=== PATIENT | female | born 1980 | race Caucasian/White ===

== ENCOUNTER 2018-02-28 09:01 | Day surgery (SDC) | payer MEDICAID ==
[~2018-02-28 09:01] MED LIST: Dexamethasone 4 MG/ML SDV ONE; Ketamine 500 mg/10 ML MDV ONE; Lactated Ringers 1,000 ML IV SCH; Lactated Ringers 1,000 ML ONE; Lidocaine 1% 4 ML ONE; Lidocaine 1%/Sod Bicarbonate in NS 8.4% 1 ML Syringe IDERM PRN; Midazolam 1 MG/ML 2 ML SDV ONE; Ondansetron 4 MG/2 ML SDV ONE; Propofol 200 MG/20 ML SDV ONE; Sodium Chloride 0.9% 10 ML Syringe FLUSH PRN; fentaNYL 100 MCG/2 ML SDV ONE
[2018-02-28] MEDS ORDERED: Bupivacaine 0.5%/EPINEPHrine 1:200,000 50 ML MDV ONE (09:41)
[2018-02-28] MEDS ORDERED: Lidocaine 1% with EPINEPHrine 1:100,000 20 ML MDV ONE ×2 (09:41→10:39)
[2018-02-28] MEDS ORDERED: Albuterol 0.083% 2.5 MG/3 ML Neb Soln NEB ONE (10:14)
[2018-02-28] MEDS ORDERED: Albuterol 0.083% 2.5 MG/3 ML Neb Soln ONE (10:18)
--- NOTE | 2018-02-28 10:22 | PCM.PREANE ---
Preanesthetic Assessment - Anesthesia/Transfusion/Family Hx Anesthesia History: Prior Anesthesia Without Reaction Other Type of Anesthesia Reaction Comment: Sometimes feels emotional after surgery. Family History of Anesthesia Reaction: No - Review of Systems General: No Symptoms Pulmonary: Cough (Occasional, some nasal allergies right now that she feels may be triggering a cough at times. ), Other (Smoker 1/2 ppd for 19 years. Trying to quite. ) Cardiovascular: No Symptoms Gastrointestinal: No Symptoms Neurological: Headache (Migraines) Other: Reports: Liver Problems (Fatty Liver), Anxiety - Physical Assessment NPO Status Date: 02/27/18 NPO Status Time: 23:00 Pulse: 62 O2 Sat by Pulse Oximetry: 97 Respiratory Rate: 19 Blood Pressure: 118/73 Temperature: 36.8 C Weight: 101 kg ASA Class: 2 Mental Status: Alert & Oriented x3 Airway Class: Mallampati = 1 Dentition: Reports: Dentures (Upper) Thyro-Mental Finger Breadths: 3 Mouth Opening Finger Breadths: 3 ROM/Head Extension: Full Lungs: Clear to Auscultation, Normal Respiratory Effort, Decreased Breath Sounds Cardiovascular: Regular Rate, Regular Rhythm - Lab Values: Laboratory Last Values Urine HCG, Qual Negative (NEGATIVE) 02/28/18 09:26 - Allergies Allergies/Adverse Reactions: Allergies Allergy/AdvReac Type Severity Reaction Status Date / Time adhesive Allergy Rash Verified 02/27/18 17:27 influenza virus vaccine, Allergy Rash Verified 02/27/18 17:27 specific [influenza virus vacc,specific] pineapple [Pineapple] Allergy Rash Verified 02/27/18 17:27 - Acknowledgements Anesthesia Type Planned: MAC Pt an Appropriate Candidate for the Planned Anesthesia: Yes Alternatives and Risks of Anesthesia Discussed w Pt/Guardian: Yes Pt/Guardian Understands and Agrees with Anesthesia Plan: Yes PreAnesthesia Questionnaire - Past Health History Medical/Surgical History: Denies Medical/Surgical History HEENT History: Reports: Impaired Vision Other HEENT History: glasses, upper denture Other Cardiovascular History: hypertension during Other Respiratory History: seasonal allergies, undiagnosed sleep apnea Other Gastrointestinal History: fatty liver with liver biopsy 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 Other Musculoskeletal History: c/o "kink in neck x 3 days" left Neurological History: Reports: Migraines Endocrine/Metabolic History: Reports: Diabetes, Gestational Hematologic History: Reports: None Immunologic History: Reports: None Oncologic (Cancer) History: Reports: None Other Dermatologic History: boil like rash to chest - Infectious Disease History Infectious Disease History: Reports: MRSA - Past Surgical History Head Surgeries/Procedures: Reports: None HEENT Surgical History: Reports: Oral Surgery Cardiovascular Surgical History: Reports: None Respiratory Surgical History: Reports: None GI Surgical History: Reports: Hernia Repair/Other Other GI Surgeries/Procedures: hernia repair during csection 2015 Female Surgical History: Reports: Section Endocrine Surgical History: Reports: None Neurological Surgical History: Reports: None Oncologic Surgical History: Reports: None - SUBSTANCE USE Smoking Status *Q: Current Every Day Smoker Recreational Drug Use History: No - HOME MEDS Home Medications: Home Meds Albuterol Sulfate [Proair Hfa] 2 puff INH Q4H PRN 02/27/18 [History] Benzonatate [Tessalon Perle] 100 mg PO QID PRN 02/27/18 [History] Doxycycline [Vibramycin] 100 mg PO BID 02/27/18 [History] Ibuprofen 800 mg PO TID PRN 02/27/18 [History] Mupirocin Oint [Bactroban Oint] 1 dose NASBOTH BID 02/27/18 [History] SUMAtriptan Succinate [Imitrex] 50 mg PO ASDIRECTED PRN 02/27/18 [History] Sertraline [Zoloft] 50 mg PO DAILY 02/27/18 [History] traZODone HCl [Trazodone HCl] 50 mg PO BEDTIME PRN 02/27/18 [History] - CURRENT (IN HOUSE) MEDS Current Meds: Current Medications Lactated Ringer's (Ringers, Lactated) 1,000 mls @ 125 mls/hr IV ASDIRECTED CHRISS Stop: 02/28/18 23:00 Lidocaine/Sodium Bicarbonate (Buffered Lidocaine 1% In Ns 8.4%) 0.25 ml IDERM ONETIME PRN PRN Reason: Prior to IV Start Stop: 02/28/18 18:00 Sodium Chloride (Saline Flush) 10 ml FLUSH ASDIRECTED PRN PRN Reason: Keep Vein Open Stop: 02/28/18 18:00 Discontinued Medications Bupivacaine HCl/Epinephrine Bitart (Marcaine 0.5%/Epinephrine 1:200,000) Confirm Administered Dose 50 ml .ROUTE .[facility]-MED ONE Stop: 02/28/18 09:42 Dexamethasone (Dexamethasone) Confirm Administered Dose 4 mg .ROUTE .[facility]-MED ONE Stop: 02/28/18 07:14 Fentanyl (Sublimaze) Confirm Administered Dose 100 mcg .ROUTE .[facility] ONE Stop: 02/28/18 07:13 Lactated Ringer's (Ringers, Lactated) Confirm Administered Dose 1,000 mls @ as directed .ROUTE .[facility]-MED ONE Stop: 02/28/18 07:12 Lidocaine HCl (Xylocaine-Mpf 1%) Confirm Administered Dose 4 mls @ as directed .ROUTE .[facility]-MED ONE Stop: 02/28/18 07:14 Ketamine HCl (Ketalar) Confirm Administered Dose 500 mg .ROUTE .[facility]-MED ONE Stop: 02/28/18 07:13 Lidocaine/Epinephrine (Xylocaine 1% With Epinephrine 1:100,000) Confirm Administered Dose 20 ml .ROUTE .[facility]-MED ONE Stop: 02/28/18 09:42 Midazolam HCl (Versed 1 Mg/Ml) Confirm Administered Dose 2 mg .ROUTE .[facility]-MED ONE Stop: 02/28/18 07:13 Ondansetron HCl (Zofran) Confirm Administered Dose 4 mg .ROUTE .[facility]-MED ONE Stop: 02/28/18 07:14 Propofol (Diprivan 20 Ml) Confirm Administered Dose 600 mg .ROUTE .[facility]-MED ONE Stop: 02/28/18 07:12
[2018-02-28] MEDS ORDERED: ceFAZolin 1 GM Vial ONE (10:39)
[2018-02-28] MEDS ORDERED: Vancomycin 1 GM, Vancomycin 500 MG in Sodium Chloride 0.9% 500 ML IV ONE (10:45)
[2018-02-28] MEDS ORDERED: fentaNYL 100 MCG/2 ML SDV ONE (11:25)
[2018-02-28] MEDS ORDERED: Ketorolac 30 MG/ML SDV ONE (11:37)
--- NOTE | 2018-02-28 11:44 | PCM.OPNOTE ---
- General Post-Op/Procedure Note Date of Surgery/Procedure: 02/28/18 Operative Procedure(s): incision and drainage of a right breast abscess with debridement of the abscess cavity Findings: Right breast abscess Pre Op Diagnosis: Right breast abscess Post-Op Diagnosis: Same Anesthesia Technique: MAC Primary Surgeon: Wendy Rosa Anesthesia Provider: Michelle Callahan Pathology: Right breast abscess cavity Fluid Replacement, Intraop: 1,000 Output, Urine Amount: 0 EBL in mLs: 5 Complications: None apparent Condition: Good
--- NOTE | 2018-02-28 11:50 | PCM.PRNOTE ---
- Free Text/Narrative Note: Operative Report Date of surgery: February 28, 2017 Preoperative diagnosis: Right breast abscess Postoperative diagnosis: same Procedure: Incision and drainage of right breast abscess with debridement of abscess cavity Surgeon: Dr. Wendy Rosa Anesthesia: MAC Stage Settings Painter: Michelle Callahan CRNA Estimated blood loss: 5 mL IV fluids: 1000 mL Urine output: 0 mL Drains and lines: None Findings: Right breast abscess Pathology: Right breast abscess cavity Indication for the procedure: . The patient is a 37-year-old lady presented to my clinic with a right breast abscess. We attempted needle aspiration and incision and drainage, however, the abscess recurred. We attempted aspiration one additional time but this did not resolve the abscess. The patient was consented for an incision and debridement of this cavity. After discussion of risks and benefits, her written consent was obtained Description of the procedure: The patient was taken back to the operating room and placed in supine position on the operating table. MAC anesthesia was induced without difficulty. A surgical timeout was performed. The patient was prepped and draped in standard surgical fashion. We began by injecting 1% lidocaine with epinephrine in the periareolar area on the right breast. He incision was made on the area where border on the right breast. A 15 blade scalpel is then used to incise this tissue, which was deepened using the Bovie device. Dissection was carried down until the abscess cavity was area. The abscess appeared to be directly posterior to the nipple. In entering the abscess cavity proximally 10 mL of murky fluid was evacuated. The abscess cavity appeared chronic, with a thickened wall and internal granulation tissue. The abscess cavity tissue was then excised and sent to pathology. The Bovie device was then used to free up the fibrous bands that were causing retraction of the nipple in order to restore normal appearing architecture of the breast. The cavity was then irrigated and packed with a wet-to-dry saline dressing. A dry dressing was then applied. Patient was awakened from MAC anesthesia successfully. She was transported to the PACU in stable condition. Wendy Rosa MD General Surgery
[2018-02-28 11:59] VITALS: BP 130/70
--- NOTE | 2018-02-28 11:59 | PCM48HPAN ---
Post Anesthesia Note - EVALUATION WITHIN 48HRS OF ANESTHETIC Vital Signs in Normal Range: Yes Patient Participated in Evaluation: Yes Respiratory Function Stable: Yes Airway Patent: Yes Cardiovascular Function Stable: Yes Hydration Status Stable: Yes Pain Control Satisfactory: Yes Nausea and Vomiting Control Satisfactory: Yes Mental Status Recovered: Yes Pulse Rate: 91 SaO2: 96 Resp Rate: 18 Temperature: 36.9 C Blood Pressure: 130/70
== END 2018-02-28 12:50 | disposition home or self-care (01) ==
LOC: JD.SDS 09:01
PROVIDERS: ATTEND Surgery
DX: N61.1 Abscess of the breast and nipple (principal); N60.31 Fibrosclerosis of right breast; F17.210 Nicotine dependence, cigarettes, uncomplicated; E66.9 Obesity, unspecified; Z68.30 Body mass index [BMI] 30.0-30.9, adult; F41.9 Anxiety disorder, unspecified; Z79.899 Other long term (current) drug therapy; Z88.7 Allergy status to serum and vaccine; Z91.048 Other nonmedicinal substance allergy status
CPT/HCPCS: 19120; 81025; 94640; J0690; J1100; J1885; J2250; J2405; J2704; J3010; J3370; J7040; J7120; 00400; J2001; J3490

== ENCOUNTER 2018-03-25 07:33 | Emergency (ER) | payer MEDICAID ==
[2018-03-25 08:05] VITALS: BP 118/84
--- NOTE | 2018-03-25 09:03 | EDM.PDOC ---
ED HPI GENERAL MEDICAL PROBLEM - General Chief Complaint: ENT Problem Stated Complaint: SORE THROAT Time Seen by Provider: 03/25/18 08:08 Source of Information: Reports: Patient, RN Notes Reviewed History Limitations: Reports: No Limitations - History of Present Illness INITIAL COMMENTS - FREE TEXT/NARRATIVE: The patient states that she woke with the sensation that her throat was swollen , around 05:00 this morning. She states that she has a sore throat. No recent fever. No recent rash. The patient denies difficulty breathing, but states that it is difficult for her to talk and swallow, although she states that her symptoms have improved since she woke this morning. The patient states that she has had similar symptoms, when she has had strep throat in the past. The patient's PCP is Dr. Preston Luz. Throat Pain Score (Numeric/FACES): 6 - Related Data Allergies Allergy/AdvReac Type Severity Reaction Status Date / Time adhesive Allergy Rash Verified 03/25/18 08:05 influenza virus vaccine, Allergy Rash Verified 03/25/18 08:05 specific [influenza virus vacc,specific] pineapple [Pineapple] Allergy Rash Verified 03/25/18 08:05 Home Meds: Home Meds Albuterol Sulfate [Proair Hfa] 2 puff INH Q4H PRN 02/27/18 [History] Benzonatate [Tessalon Perle] 100 mg PO QID PRN 02/27/18 [History] Doxycycline [Vibramycin] 100 mg PO BID 02/27/18 [History] Ibuprofen 800 mg PO TID PRN 02/27/18 [History] Mupirocin Oint [Bactroban Oint] 1 dose NASBOTH BID 02/27/18 [History] SUMAtriptan Succinate [Imitrex] 50 mg PO ASDIRECTED PRN 02/27/18 [History] Sertraline [Zoloft] 50 mg PO DAILY 02/27/18 [History] traZODone HCl [Trazodone HCl] 50 mg PO BEDTIME PRN 02/27/18 [History] Acetaminophen/HYDROcodone [[place] 325-5 MG] 1 tab PO Q4H PRN 14 Days #30 tablet 02/28/18 [Rx] Past Medical History HEENT History: Reports: Allergic Rhinitis, Impaired Vision Other HEENT History: glasses, upper denture Gastrointestinal History: Reports: Other (See Below) (Hepatic steatosis) 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: Reports: Polycystic Ovaries, Other (See Below) (Preeclampsia during first ) Psychiatric History: Reports: Depression Endocrine/Metabolic History: Reports: Diabetes, Gestational, Obesity/BMI 30+ - Infectious Disease History Infectious Disease History: Reports: MRSA - Past Surgical History HEENT Surgical History: Reports: Oral Surgery (Upper dentures) GI Surgical History: Reports: Hernia, Abdominal (Incisional), Other (See Below) (abdominal wall seroma drainage) Female Surgical History: Reports: Section (x 2) Dermatological Surgical History: Reports: Other (See Below) (Right breast abscess debridement 02/28/2018. Earlier cultures grew MRSA.) Social & Family History - Family History Family Medical History: Noncontributory - Tobacco Use Smoking Status *Q: Current Every Day Smoker Years of Tobacco use: 23 Packs/Tins Daily: 0.1 Packs/Tins Daily Comment: Down from 02/26 ppd - Caffeine Use Caffeine Use: Reports: Coffee, Soda - Alcohol Use Alcohol Use History: Yes Alcohol Use Frequency: Socially - Recreational Drug Use Recreational Drug Use: Yes Drug Use in Last 12 Months: No Recreational Drug Type: Reports: Marijuana/Hashish (last smoked when around 19 years old) - Living Situation & Occupation Living situation: Reports: , with Spouse, with Family (3 kids) Occupation: Unemployed ED ROS GENERAL - Review of Systems Review Of Systems: ROS reveals no pertinent complaints other than HPI. ED EXAM, GENERAL - Physical Exam Exam: See Below Exam Limited By: No Limitations General Appearance: Alert, WD/WN, No Apparent Distress Eye Exam: Bilateral Eye: EOMI, Normal Inspection Ears: Normal External Exam, Normal Canal, Hearing Grossly Normal, Normal TMs Nose: Normal Inspection, Normal Mucosa, No Blood Throat/Mouth: Normal Inspection, Normal Lips, Normal Teeth, Normal Gums, No Airway Compromise, Other (Significant uvular swelling, with mild associated erythema, but no tonsillar swelling, erythema, or exudate) Head: Atraumatic, Normocephalic Neck: Normal Inspection, Supple, Non-Tender, Full Range of Motion. No: Lymphadenopathy (L), Lymphadenopathy (R) Course - Vital Signs Last Recorded V/S: Last Vital Signs Temp 37.0 C 03/25/18 08:01 Pulse 69 03/25/18 08:01 Resp 16 03/25/18 08:01 BP 118/84 03/25/18 08:01 Pulse Ox 98 03/25/18 08:01 - Re-Assessments/Exams Free Text/Narrative Re-Assessment/Exam: 03/25/18 08:57 The patient's rapid strep test has returned negative. I suspect that her uvular swelling is due to excessive negative pressures while sleeping, due to obstructive sleep apnea. This explains why her symptoms have improved since she woke up this morning. I explained to the patient that obstructive sleep apnea is not just about a bad night's sleep, but that it can cause numerous cardiac and pulmonary problems, which can be avoided if SAHARA is identified and treated early. I'm recommending that she follow-up with her PCP, Dr. Luz, to arrange for an outpatient sleep study. For today's purposes, I am recommending that she remain upright and suck on ice or cold fluids. Anti-inflammatories, such as NSAIDs or steroids would not be of benefit, since the patient is suffering from swelling, not inflammation. Departure - Departure Time of Disposition: 08:58 Disposition: Home, Self-Care 01 Condition: Good Clinical Impression: Uvular swelling - Discharge Information *PRESCRIPTION DRUG MONITORING PROGRAM REVIEWED*: Not Applicable *COPY OF PRESCRIPTION DRUG MONITORING REPORT IN PATIENT ART: Not Applicable Instructions: Uvulitis Referrals: Preston Luz MD [Primary Care Provider] - Forms: ED Department Discharge Additional Instructions: You were seen in the emergency room for swelling in the back of your throat. Workup in the ER included a rapid strep test, which returned negative. You do not have strep throat. On examination, your uvula is swollen. Based on your history, physical examination, and ER test, the cause of your uvular swelling is most likely due to excess of negative pressures while you slept, due to obstructive sleep apnea. As discussed, obstructive sleep apnea is not just about getting a poor night's sleep, but can cause serious heart and lung problems over time. It is important that it is diagnosed and treated early, before permanent damage is done. We recommend that you follow-up with your PCP, Dr. Preston Luz, to arrange for an outpatient sleep study. In the meantime, in order to reduce the swelling in your throat today, we recommend that you stay upright is much as possible, and drink cool beverages or suck on ice cubes. If any other problems, please do not hesitate to return to the ER.
== END 2018-03-25 09:11 | disposition home or self-care (01) ==
LOC: JD.ED 07:33
DX: R22.0 Localized swelling, mass and lump, head (principal); F17.210 Nicotine dependence, cigarettes, uncomplicated; Z79.899 Other long term (current) drug therapy; Z88.7 Allergy status to serum and vaccine; Z91.018 Allergy to other foods
CPT/HCPCS: 87081; 87430; 99283

== ENCOUNTER 2021-01-14 17:54 | Emergency (ER) | payer MEDICAID ==
[2021-01-14] MEDS ORDERED: Ketorolac 15 MG/ML SDV IM ONE (19:44)
[2021-01-14] MEDS ORDERED: Cyclobenzaprine 10 MG Tab PO ONE (19:44)
[2021-01-14] MEDS ORDERED: Ketorolac 30 MG/ML SDV IM ONE (20:11)
--- NOTE | 2021-01-14 20:32 | EDM.PDOC ---
ED HPI GENERAL MEDICAL PROBLEM - General Chief Complaint: Upper Extremity Injury/Pain Stated Complaint: R SHOULDER PAIN Time Seen by Provider: 01/14/21 20:00 Source of Information: Reports: Patient History Limitations: Reports: No Limitations - History of Present Illness INITIAL COMMENTS - FREE TEXT/NARRATIVE: Patient is a 40-year-old female with a history of obesity presenting with a chief complaint of right shoulder pain. Patient states yesterday she started noticing some stiffness in her right shoulder. Today the stiffness worsened and she started developing significant pain when she moves her shoulder. She also noticed some occasional shooting pains into her elbow as well as some numbness tingling in her fourth and fifth digits. She is right-hand dominant. 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 She has never had shoulder issues before. No prior surgeries on her shoulder. Denies any neck pain, headache, fevers, recent traumatic injury. Did not take any medications prior to arrival. Right Shoulder Pain Score (Numeric/FACES): 9 - Related Data Allergies Allergy/AdvReac Type Severity Reaction Status Date / Time adhesive Allergy Rash Verified 01/14/21 19:23 influenza virus vaccine, Allergy Rash Verified 01/14/21 19:23 specific [influenza virus vacc,specific] pineapple [Pineapple] Allergy Rash Verified 01/14/21 19:23 Home Meds: Home Meds Albuterol Sulfate [Proair Hfa] 2 puff INH Q4H PRN 02/27/18 [History] Benzonatate [Tessalon Perle] 100 mg PO QID PRN 02/27/18 [History] Doxycycline [Vibramycin] 100 mg PO BID 02/27/18 [History] Ibuprofen 800 mg PO TID PRN 02/27/18 [History] Mupirocin Oint [Bactroban Oint] 1 dose NASBOTH BID 02/27/18 [History] SUMAtriptan succinate [Imitrex] 50 mg PO ASDIRECTED PRN 02/27/18 [History] Sertraline [Zoloft] 50 mg PO DAILY 02/27/18 [History] traZODone HCl [Trazodone HCl] 50 mg PO BEDTIME PRN 02/27/18 [History] Acetaminophen/HYDROcodone [[place] 325-5 MG] 1 tab PO Q4H PRN 14 Days #30 tablet 02/28/18 [Rx] Past Medical History - Past Health History Medical/Surgical History: Denies Medical/Surgical History HEENT History: Reports: Allergic Rhinitis, Impaired Vision Other HEENT History: glasses, upper denture Other Cardiovascular History: hypertension during Other Respiratory History: seasonal allergies, undiagnosed sleep apnea Gastrointestinal History: Reports: Other (See Below) Other Gastrointestinal History: fatty liver with liver biopsy 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 Other Musculoskeletal History: c/o "kink in neck x 3 days" left Neurological History: Reports: Migraines Psychiatric History: Reports: Depression Endocrine/Metabolic History: Reports: Diabetes, Gestational, Obesity/BMI 30+ Hematologic History: Reports: None Immunologic History: Reports: None Oncologic (Cancer) History: Reports: None Other Dermatologic History: boil like rash to chest, HS - Infectious Disease History Infectious Disease History: Reports: MRSA - Past Surgical History Head Surgeries/Procedures: Reports: None HEENT Surgical History: Reports: Oral Surgery Cardiovascular Surgical History: Reports: None Respiratory Surgical History: Reports: None GI Surgical History: Reports: Hernia, Abdominal, Other (See Below) Other GI Surgeries/Procedures: hernia repair during csection 2014 Female Surgical History: Reports: Section Endocrine Surgical History: Reports: None Neurological Surgical History: Reports: None Oncologic Surgical History: Reports: None Dermatological Surgical History: Reports: Other (See Below) Social & Family History - Family History Family Medical History: No Pertinent Family History - Tobacco Use Tobacco Use Status *Q: Current Every Day Tobacco User Years of Tobacco use: 25 Packs/Tins Daily: 0.5 - Caffeine Use Caffeine Use: Reports: Coffee, Energy Drinks - Recreational Drug Use Recreational Drug Use: No - Living Situation & Occupation Living situation: Reports: , with Spouse, with Family (3 kids) Occupation: Unemployed Review of Systems - Review of Systems Review Of Systems: See Below Constitutional: Denies: Fever Eyes: Denies: Blurred Vision, Vision Change Respiratory: Denies: Pleuritic Chest Pain, Cough Cardiovascular: Denies: Chest Pain Musculoskeletal: Reports: Shoulder Pain. Denies: Neck Pain, Leg Pain Skin: Denies: Rash, Change in Color Neurological: Denies: Dizziness, Headache ED EXAM, GENERAL - Physical Exam Exam: See Below Free Text/Narrative:: I have reviewed the triage vital signs Const: Well nourished, well developed, appears stated age Eyes: Pupils Equal and reactive to light bilaterally, no conjunctival injection HENT: No signs of trauma or swelling, Neck supple without meningismus CV: Regular Rate Rhythm, Warm, well-perfused extremities RESP: Unlabored respiratory effort GI: soft, non-tender, non-distended, no masses MSK: Examination of the right arm demonstrates no deformities. There is no erythema overlying the shoulder. Range of motion is limited secondary to pain. There is no evidence of swelling. No focal areas of tenderness. Examination of the right hand demonstrates intact neurologic exam. Strong radial pulse. No gross deformities appreciated Skin: Warm, dry. 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 Sensation and motor function of extremities grossly intact. Psych: Appropriate mood and affect. Course - Vital Signs Last Recorded V/S: Last Vital Signs Temp 36.4 C 01/14/21 19:15 Pulse 81 01/14/21 19:15 Resp 17 01/14/21 19:15 BP 140/101 H 01/14/21 19:15 Pulse Ox 100 01/14/21 19:15 - Orders/Labs/Meds Orders: Active Orders 24 hr Category Date Time Status Shoulder Comp Rt [CR] Stat Exams 01/14/21 19:44 Taken Meds: Medications Discontinued Medications Generic Name Dose Route Start Last Admin Trade Name Kaya PRN Reason Stop Dose Admin Cyclobenzaprine HCl 10 mg 01/14/21 19:44 01/14/21 20:16 Cyclobenzaprine 10 Mg Tab PO 01/14/21 19:45 10 mg ONETIME ONE Administration Ketorolac Tromethamine 30 mg 01/14/21 19:44 01/14/21 20:13 Ketorolac 15 Mg/Ml Sdv IM 01/14/21 19:45 Not Given ONETIME ONE Ketorolac Tromethamine 30 mg 01/14/21 20:11 01/14/21 20:17 Ketorolac 30 Mg/Ml Sdv IM 01/14/21 20:12 30 mg ONETIME ONE Administration Departure - Departure Time of Disposition: 20:32 Disposition: DC/Tfer W/I Hosp To Swing 61 Clinical Impression: Right shoulder pain - Discharge Information Instructions: Shoulder Pain Referrals: Preston Luz MD [Primary Care Provider] - Additional Instructions: I recommend use of ibuprofen every 6-8 hours. In addition, take the muscle relaxers as prescribed. Please follow-up with primary care physician if the symptoms persist as you will likely need outpatient imaging including an MRI. Sepsis Event Note (ED) - Evaluation Sepsis Screening Result: No Definite Risk - Focused Exam Vital Signs: Vital Signs Temp Pulse Resp BP Pulse Ox 01/14/21 19:15 36.4 C 81 17 140/101 H 100 - My Orders Last 24 Hours: My Active Orders 01/14/21 19:44 Shoulder Comp Rt [CR] Stat - Assessment/Plan Last 24 Hours: My Active Orders 01/14/21 19:44 Shoulder Comp Rt [CR] Stat Assessment:: Patient is a 40-year-old female presenting with right shoulder pain. Differential diagnosis considered for this patient include infected joint, aortic dissection, ACS, stroke. These are all low likelihood given history and examination. At this point, her shoulder x-ray interpreted by myself does not demonstrate any evidence of fracture, dislocation or other acute process. Patient be discharged with outpatient follow-up and return precautions.
[2021-01-14 21:35] VITALS: BP 124/82; PULSE 86
--- NOTE | 2021-01-15 08:51 | CR ---
Right shoulder: 3 views of the right shoulder were obtained. Comparison: No prior right shoulder study is available. Glenohumeral joint and acromioclavicular joint appears within normal limits. No fracture, dislocation or other bony abnormality is seen. Impression: 1. Nothing acute is seen on right shoulder study. Diagnostic code #1
== END 2021-01-14 20:58 | disposition swing bed (61) ==
LOC: JD.ED 17:54
DX: M25.511 Pain in right shoulder (principal); E66.9 Obesity, unspecified; I10 Essential (primary) hypertension; Z68.30 Body mass index [BMI] 30.0-30.9, adult; Z91.048 Other nonmedicinal substance allergy status; Z88.7 Allergy status to serum and vaccine; Z91.018 Allergy to other foods; Z72.0 Tobacco use
CPT/HCPCS: 73030; 96372; 99283; A9270; J1885

== ENCOUNTER 2024-11-15 20:06 | Inpatient (IN) | payer MEDICAID ==
[2024-11-15] MEDS ORDERED: Sodium Chloride 0.9% 10 ML Syringe FLUSH PRN (20:45)
[2024-11-15 20:54] LABS: BASOPHILS ABSOLUTE AUTO 0.1 K/mm3 (0.0-0.2); BASOPHILS PERCENT AUTO 0.3 % (0.0-1.0); EOSINOPHILS ABSOLUTE AUTO 0.0 K/mm3 (0.0-0.4); EOSINOPHILS PERCENT AUTO 0.2 % (0.0-6.0); IMMATURE GRAN ABSOLUTE AUTO 0.11 K/mm3 (0.00-0.05); IMMATURE GRAN PERCENT AUTO 0.6 % (0.0-0.4); LYMPHOCYTES ABSOLUTE AUTO 2.4 K/mm3 (1.0-4.8); LYMPHOCYTES PERCENT AUTO 13.2 % (24.0-44.0); MEAN PLATELET VOLUME 10.5 fl (9.4-12.3); MONOCYTES ABSOLUTE AUTO 1.2 K/mm3 (0.0-0.8); MONOCYTES PERCENT AUTO 6.8 % (0.0-8.0); NEUTROPHILS ABSOLUTE AUTO 14.1 K/mm3 (1.8-7.7); NEUTROPHILS PERCENT AUTO 78.9 % (41.0-71.0); NRBC ABSOLUTE 0.00 (0.00-0.02); NRBC PERCENT 0.0 % (0.0-0.2); PLATELET COUNT,PLT 272 K/mm3 (150-400); RED BLOOD CELL COUNT 4.58 M/mm3 (4.10-5.30); WHITE BLOOD CELL COUNT,WBC 17.84 K/mm3 (3.9-11.3)
[2024-11-15 21:08] LABS: LACTIC ACID 1.5 mmol/L (0.4-2.0)
[2024-11-15 21:14] LABS: A/G RATIO 0.7 (1-2); ALANINE AMINOTRANSFERASE,ALT 46.0 U/L (14-59); ASPARTATE AMNIOTRANSFERASE,AST 22.0 U/L (15-37); BILIRUBIN TOTAL 0.3 mg/dL (0.2-1.0); BLOOD UREA NITROGEN,BUN 18.0 mg/dL (7-18); CARBON DIOXIDE,CO2 25.0 mEq/L (21-32); CHLORIDE,CL 105.0 mEq/L (98-107); CREATININE 0.8 mg/dL (0.55-1.02); EST CRCL DRUG DOSING (CG) 79.91 mL/min; ESTIMATED GFR 93.0 mL/min (>60); GLUCOSE RANDOM 219.0 mg/dL (70-99); POTASSIUM,K 3.9 mEq/L (3.5-5.1); PROTEIN TOTAL,TP 7.9 g/dl (6.4-8.2); SODIUM,NA 138.0 mEq/L (136-145); TROPONIN I HIGH SENSITIVITY 5.0 pg/mL (<=51)
[2024-11-15] MEDS: Sodium Chloride 0.9% 10 ML Syringe FLUSH PRN (21:15)
[2024-11-15] MEDS: Iopamidol 755 Mg/ML 100 ML Bottle IVPUSH ONE (21:15)
[2024-11-15 22:55] LABS: APPEARANCE,URINE CLEAR (Clear); GLUCOSE,URINE NEGATIVE (Negative); OCCULT BLOOD,URINE NEGATIVE (Negative)
[2024-11-15 23:02] LABS: SQUAMOUS EPITHELIAL CELLS,UR 0-5 /hpf (0-5)
[2024-11-15] MEDS: methylPREDNISolone Sodium Succinate 125 MG/2 ML SDV IVPUSH ONE (23:06)
[2024-11-16] MEDS: Magnesium Sulfat/D5W 1GM/100ML 1 GM in Premix Bag 1 BAG IV SCH (00:49)
[2024-11-16] MEDS: Acetaminophen/oxyCODONE 325-5 MG Tab PO PRN (02:55)
[2024-11-16 05:53] LABS: BASOPHILS ABSOLUTE AUTO 0.0 K/mm3 (0.0-0.2); BASOPHILS PERCENT AUTO 0.2 % (0.0-1.0); EOSINOPHILS ABSOLUTE AUTO 0.0 K/mm3 (0.0-0.4); EOSINOPHILS PERCENT AUTO 0.1 % (0.0-6.0); IMMATURE GRAN ABSOLUTE AUTO 0.11 K/mm3 (0.00-0.05); IMMATURE GRAN PERCENT AUTO 0.7 % (0.0-0.4); LYMPHOCYTES ABSOLUTE AUTO 0.9 K/mm3 (1.0-4.8); LYMPHOCYTES PERCENT AUTO 5.7 % (24.0-44.0); MEAN PLATELET VOLUME 10.3 fl (9.4-12.3); MONOCYTES ABSOLUTE AUTO 0.3 K/mm3 (0.0-0.8); MONOCYTES PERCENT AUTO 2.3 % (0.0-8.0); NEUTROPHILS ABSOLUTE AUTO 13.7 K/mm3 (1.8-7.7); NEUTROPHILS PERCENT AUTO 91.0 % (41.0-71.0); NRBC ABSOLUTE 0.00 (0.00-0.02); NRBC PERCENT 0.0 % (0.0-0.2); PLATELET COUNT,PLT 251 K/mm3 (150-400); RED BLOOD CELL COUNT 4.33 M/mm3 (4.10-5.30); WHITE BLOOD CELL COUNT,WBC 15.06 K/mm3 (3.9-11.3)
[2024-11-16 06:36] LABS: A/G RATIO 0.7 (1-2); ALANINE AMINOTRANSFERASE,ALT 44.0 U/L (14-59); ASPARTATE AMNIOTRANSFERASE,AST 21.0 U/L (15-37); BILIRUBIN TOTAL 0.4 mg/dL (0.2-1.0); BLOOD UREA NITROGEN,BUN 17.0 mg/dL (7-18); CARBON DIOXIDE,CO2 22.0 mEq/L (21-32); CHLORIDE,CL 104.0 mEq/L (98-107); CREATININE 0.8 mg/dL (0.55-1.02); EST CRCL DRUG DOSING (CG) 79.91 mL/min; ESTIMATED GFR 93.0 mL/min (>60); GLUCOSE RANDOM 323.0 mg/dL (70-99); POTASSIUM,K 4.3 mEq/L (3.5-5.1); PROTEIN TOTAL,TP 7.3 g/dl (6.4-8.2); SODIUM,NA 137.0 mEq/L (136-145)
[2024-11-16] MEDS ORDERED: Ondansetron 4 MG/2 ML SDV IV PRN (09:51)
[2024-11-16] MEDS ORDERED: Albuterol 0.083% 2.5 MG/3 ML Neb Soln NEB PRN (09:51)
[2024-11-16] MEDS: methylPREDNISolone Sodium Succinate 40 MG/1 ML SDV IVPUSH SCH (14:13)
[2024-11-16] MEDS: guaiFENesin/Dextromethorphan 100-10 MG/5 ML Soln 5 ML Cup PO SCH (21:57)
[2024-11-16] MEDS: methylPREDNISolone Sodium Succinate 40 MG/1 ML SDV IVPUSH ONE (21:57)
[2024-11-17] MEDS: Insulin Lispro 100 Unit/ML 3 ML KwikPen SUBCUT SCH (00:33)
[2024-11-17 04:45] LABS: BASOPHILS ABSOLUTE AUTO 0.0 K/mm3 (0.0-0.2); BASOPHILS PERCENT AUTO 0.2 % (0.0-1.0); EOSINOPHILS ABSOLUTE AUTO 0.0 K/mm3 (0.0-0.4); EOSINOPHILS PERCENT AUTO 0.0 % (0.0-6.0); IMMATURE GRAN ABSOLUTE AUTO 0.17 K/mm3 (0.00-0.05); IMMATURE GRAN PERCENT AUTO 1.0 % (0.0-0.4); LYMPHOCYTES ABSOLUTE AUTO 1.1 K/mm3 (1.0-4.8); LYMPHOCYTES PERCENT AUTO 6.6 % (24.0-44.0); MEAN PLATELET VOLUME 10.5 fl (9.4-12.3); MONOCYTES ABSOLUTE AUTO 0.7 K/mm3 (0.0-0.8); MONOCYTES PERCENT AUTO 4.0 % (0.0-8.0); NEUTROPHILS ABSOLUTE AUTO 14.9 K/mm3 (1.8-7.7); NEUTROPHILS PERCENT AUTO 88.2 % (41.0-71.0); NRBC ABSOLUTE 0.00 (0.00-0.02); NRBC PERCENT 0.0 % (0.0-0.2); PLATELET COUNT,PLT 275 K/mm3 (150-400); RED BLOOD CELL COUNT 4.47 M/mm3 (4.10-5.30); WHITE BLOOD CELL COUNT,WBC 16.91 K/mm3 (3.9-11.3)
[2024-11-17 05:16] LABS: A/G RATIO 0.6 (1-2); ALANINE AMINOTRANSFERASE,ALT 42.0 U/L (14-59); ASPARTATE AMNIOTRANSFERASE,AST 13.0 U/L (15-37); BILIRUBIN TOTAL 0.3 mg/dL (0.2-1.0); BLOOD UREA NITROGEN,BUN 18.0 mg/dL (7-18); CARBON DIOXIDE,CO2 25.0 mEq/L (21-32); CHLORIDE,CL 103.0 mEq/L (98-107); CREATININE 0.8 mg/dL (0.55-1.02); EST CRCL DRUG DOSING (CG) 79.91 mL/min; ESTIMATED GFR 93.0 mL/min (>60); GLUCOSE RANDOM 304.0 mg/dL (70-99); POTASSIUM,K 4.6 mEq/L (3.5-5.1); PROTEIN TOTAL,TP 7.4 g/dl (6.4-8.2); SODIUM,NA 137.0 mEq/L (136-145)
[2024-11-17] MEDS: Alum Hydrox/Mag Hydrox/Simeth 30 ML, Lidocaine 2% 15 ML PO ONE (16:28)
[2024-11-17 18:47] LABS: BORDETELLA PARAPERT IS1001 Not Detected (Not Detected)
[2024-11-17] MEDS ORDERED: methylPREDNISolone Sodium Succinate 40 MG/1 ML SDV IVPUSH ONE (21:00)
[2024-11-18 04:37] LABS: BASOPHILS ABSOLUTE AUTO 0.0 K/mm3 (0.0-0.2); BASOPHILS PERCENT AUTO 0.3 % (0.0-1.0); EOSINOPHILS ABSOLUTE AUTO 0.1 K/mm3 (0.0-0.4); EOSINOPHILS PERCENT AUTO 0.4 % (0.0-6.0); IMMATURE GRAN ABSOLUTE AUTO 0.20 K/mm3 (0.00-0.05); IMMATURE GRAN PERCENT AUTO 1.3 % (0.0-0.4); LYMPHOCYTES ABSOLUTE AUTO 3.0 K/mm3 (1.0-4.8); LYMPHOCYTES PERCENT AUTO 19.0 % (24.0-44.0); MEAN PLATELET VOLUME 10.5 fl (9.4-12.3); MONOCYTES ABSOLUTE AUTO 0.8 K/mm3 (0.0-0.8); MONOCYTES PERCENT AUTO 5.4 % (0.0-8.0); NEUTROPHILS ABSOLUTE AUTO 11.6 K/mm3 (1.8-7.7); NEUTROPHILS PERCENT AUTO 73.6 % (41.0-71.0); NRBC ABSOLUTE 0.00 (0.00-0.02); NRBC PERCENT 0.0 % (0.0-0.2); PLATELET COUNT,PLT 312 K/mm3 (150-400); RED BLOOD CELL COUNT 4.38 M/mm3 (4.10-5.30); WHITE BLOOD CELL COUNT,WBC 15.68 K/mm3 (3.9-11.3)
[2024-11-18 05:16] LABS: A/G RATIO 0.6 (1-2); ALANINE AMINOTRANSFERASE,ALT 43.0 U/L (14-59); ASPARTATE AMNIOTRANSFERASE,AST 18.0 U/L (15-37); BILIRUBIN TOTAL 0.2 mg/dL (0.2-1.0); BLOOD UREA NITROGEN,BUN 27.0 mg/dL (7-18); CARBON DIOXIDE,CO2 26.0 mEq/L (21-32); CHLORIDE,CL 106.0 mEq/L (98-107); CREATININE 0.8 mg/dL (0.55-1.02); EST CRCL DRUG DOSING (CG) 79.91 mL/min; ESTIMATED GFR 93.0 mL/min (>60); GLUCOSE RANDOM 175.0 mg/dL (70-99); POTASSIUM,K 3.9 mEq/L (3.5-5.1); PROTEIN TOTAL,TP 7.1 g/dl (6.4-8.2); SODIUM,NA 141.0 mEq/L (136-145)
[2024-11-19 04:30] LABS: BASOPHILS ABSOLUTE AUTO 0.1 K/mm3 (0.0-0.2); BASOPHILS PERCENT AUTO 0.4 % (0.0-1.0); EOSINOPHILS ABSOLUTE AUTO 0.1 K/mm3 (0.0-0.4); EOSINOPHILS PERCENT AUTO 0.6 % (0.0-6.0); IMMATURE GRAN ABSOLUTE AUTO 0.33 K/mm3 (0.00-0.05); IMMATURE GRAN PERCENT AUTO 2.5 % (0.0-0.4); LYMPHOCYTES ABSOLUTE AUTO 3.3 K/mm3 (1.0-4.8); LYMPHOCYTES PERCENT AUTO 24.5 % (24.0-44.0); MEAN PLATELET VOLUME 10.2 fl (9.4-12.3); MONOCYTES ABSOLUTE AUTO 0.8 K/mm3 (0.0-0.8); MONOCYTES PERCENT AUTO 6.2 % (0.0-8.0); NEUTROPHILS ABSOLUTE AUTO 8.9 K/mm3 (1.8-7.7); NEUTROPHILS PERCENT AUTO 65.8 % (41.0-71.0); NRBC ABSOLUTE 0.00 (0.00-0.02); NRBC PERCENT 0.0 % (0.0-0.2); PLATELET COUNT,PLT 283 K/mm3 (150-400); RED BLOOD CELL COUNT 4.37 M/mm3 (4.10-5.30); WHITE BLOOD CELL COUNT,WBC 13.45 K/mm3 (3.9-11.3)
[2024-11-19 04:47] VITALS: BP 142/91
[2024-11-19 04:57] LABS: A/G RATIO 0.7 (1-2); ALANINE AMINOTRANSFERASE,ALT 52.0 U/L (14-59); ASPARTATE AMNIOTRANSFERASE,AST 17.0 U/L (15-37); BILIRUBIN TOTAL 0.2 mg/dL (0.2-1.0); BLOOD UREA NITROGEN,BUN 26.0 mg/dL (7-18); CARBON DIOXIDE,CO2 28.0 mEq/L (21-32); CHLORIDE,CL 105.0 mEq/L (98-107); CREATININE 0.7 mg/dL (0.55-1.02); EST CRCL DRUG DOSING (CG) 91.32 mL/min; ESTIMATED GFR 109.0 mL/min (>60); GLUCOSE RANDOM 139.0 mg/dL (70-99); POTASSIUM,K 3.7 mEq/L (3.5-5.1); PROTEIN TOTAL,TP 6.6 g/dl (6.4-8.2); SODIUM,NA 141.0 mEq/L (136-145)
[2024-11-19 10:34] VITALS: PULSE 68
== END 2024-11-19 10:55 | disposition home or self-care (01) | DRG 193 ==
LOC: JD.ED 20:06 → JD.MS 11-16 00:33
PROVIDERS: ADMIT Student in an Organized Health Care Education/Training Program; ATTEND Family Medicine
DX: J12.89 Other viral pneumonia (principal); J96.01 Acute respiratory failure with hypoxia; B97.10 Unspecified enterovirus as the cause of diseases classified elsewhere; H54.7 Unspecified visual loss; I10 Essential (primary) hypertension; G43.909 Migraine, unspecified, not intractable, without status migrainosus; F32.A Depression, unspecified; E66.9 Obesity, unspecified; F17.210 Nicotine dependence, cigarettes, uncomplicated; E83.42 Hypomagnesemia; R73.9 Hyperglycemia, unspecified; Z88.7 Allergy status to serum and vaccine; Z91.048 Other nonmedicinal substance allergy status; Z91.018 Allergy to other foods; Z68.39 Body mass index [BMI] 39.0-39.9, adult; Z98.890 Other specified postprocedural states; Z86.16 Personal history of COVID-19; Z78.9 Other specified health status
CPT/HCPCS: 36415; 71275; 71275-26; 80053; 81001; 82947; 83036; 83605; 83735; 83880; 84484; 85025; 86140; 86738; 87040; 87070; 87205; 87428-QW; 87486; 87581; 87633; 87899; 93005; 93010; 94640; 94667; 94668; 94760; 94761; 94762; 96374; 99285; 99285-25; A9270-GY; J0456; J0696; J1271; J1650; J2470; J2543; J2919; J3475; J7030; J7050; J7512; Q9967